=== PATIENT | male | born 1995 | race Caucasian/White ===

== ENCOUNTER 2017-11-10 21:38 | Emergency (ER) | payer OTHER ==
[~2017-11-10] VITALS: Ht 180.3 cm; Wt 87.0 kg
[2017-11-10 22:20] LABS: MICROSCOPIC NOT IND
[2017-11-10] MEDS ORDERED: LORazepam 1MG TABLET ONE (22:20)
[2017-11-10 22:24] LABS: CULTURE INDICATED? NO
[2017-11-10] MEDS ORDERED: LORazepam 1MG TABLET PO ONE (22:30)
[2017-11-10 22:55] VITALS: BP 120/66
== END 2017-11-11 00:22 | disposition home or self-care (01) ==
LOC: ED 23:59
DX: M62.830 Muscle spasm of back (principal); R07.89 Other chest pain
CPT/HCPCS: 36415; 71045; 72072; 81003; 84484; 93005; 99285